=== PATIENT | male | born 1985 | race Hispanic/Latino ===

== ENCOUNTER 2022-06-04 13:19 | Emergency (ER) | payer SELFPAY ==
[2022-06-04] MEDS ORDERED: Lidocaine 1% PF 5 ML VIAL ONE (14:38)
[2022-06-04] MEDS ORDERED: CEFAZOLIN 1 GM VIAL ONE (14:38)
[2022-06-04] MEDS ORDERED: Boostrix 0.5 ML (Tdap) VIAL (>/=7 yrs of age) ONE (14:38)
[2022-06-04] MEDS ORDERED: Ondansetron PF 4 MG/2 ML Vial ONE (14:46)
[2022-06-04] MEDS ORDERED: Sterile Water 10 ML ONE (14:46)
[2022-06-04] MEDS ORDERED: Ondansetron ODT 4 MG TAB ONE (14:46)
== END 2022-06-04 15:13 | disposition home or self-care (01) ==
LOC: ERS 13:19
DX: S61.432A Puncture wound without foreign body of left hand, initial encounter (principal); W45.0XXA Nail entering through skin, initial encounter
CPT/HCPCS: 90471; 90715; 96372; J0690; J2405; Q0162

== ENCOUNTER 2024-07-27 02:34 | Emergency (ER) | payer SELFPAY ==
[2024-07-27] MEDS ORDERED: diphenhydrAMINE 50 MG/ML VIAL ONE (03:29)
[2024-07-27] MEDS ORDERED: methylPREDNISolone Sod Succ/PF 125 MG/2 ML VIAL ONE (03:29)
[2024-07-27] MEDS ORDERED: Famotidine/PF 20 mg/2ml Vial ONE (03:34)
[2024-07-27] MEDS ORDERED: Tranexamic Acid 1,000 MG/10 ML VIAL ONE (03:44)
[2024-07-27 03:56] LABS: Bacteria/HPF None Seen HPF (None Seen); Bilirubin Negative (Negative); Blood, Urine Negative (Negative); CAUTI Indications for Culture Pelvic or flank pain; Clarity Clear (Clear); Glucose, Urine (Dipstick) Normal (Negative); Ketone, Urine Negative (Negative); Leukocyte Negative Leu/uL (Negative); Nitrite Negative (Negative); Protein, Urine (Dipstick) Negative (Neg-Trace); Specific Gravity, Urine 1.026 (1.002-1.036); Squamous Epithelial None Seen HPF (0-3); Urobilinogen Normal mg/dL (Less than 2); WBC/HPF None Seen HPF (0-3)
[2024-07-27 03:58] LABS: Urine Culture Reflex No No
[2024-07-27 10:45] LABS: Chlam.trachomatis by PCR,Urine Not Detected (NotDetected); GC N.gonorrhoeae PCR,UrineVOID Not Detected (NotDetected)
== END 2024-07-27 05:46 | disposition home or self-care (01) ==
LOC: ERS 02:34
DX: T78.3XXA Angioneurotic edema, initial encounter (principal); J30.2 Other seasonal allergic rhinitis
CPT/HCPCS: 81001; 87491; 87591; 96374; 96375; J1200; J2919; J3490